=== PATIENT | female | born 1960 | race Caucasian/White ===

== ENCOUNTER → 2017-11-22 | Outpatient (CLI) | payer OTHER ==
[~2017-11-22] MED LIST: BACTRIM DS 8001 TA1 PO; COZAAR100 MG PO; CRESTOR10 MG PO; IBU-8800 MG PO; KEFLEX500 MG PO; METFORMIN1000 MG PO; PERCOCET 325 MG1 TA2 PO; ROBAXIN-750750 MG PO
== END | disposition home or self-care (01) ==
LOC: US 16:56
DX: M79.672 Pain in left foot (principal); R60.0 Localized edema

== ENCOUNTER → 2017-12-13 | Outpatient (CLI) | payer OTHER | END | disposition home or self-care (01) | LOC: US 11:55 | DX: M79.662 Pain in left lower leg (principal); R60.9 Edema, unspecified ==

== ENCOUNTER 2020-12-18 15:09 | Inpatient (IN) | payer OTHER ==
[~2020-12-18] VITALS: Ht 162.5 cm; Wt 128.0 kg
[2020-12-18] VITALS (7 sets, daily range): BP systolic 117–136; BP diastolic 46–88
[2020-12-18 15:49] LABS: HEMATOCRIT 34.5 % (37.0-47.0); LYMPH # 0.8 10*3/uL (1.3-4.4); MEAN CELL VOLUME 99.4 fl (81.0-99.0); MEAN CORPUSCULAR HGB 31.7 pg (27.0-31.0); MEAN CORPUSCULAR HGB CONC 31.9 g/dl (33.0-37.0); MEAN PLATELET VOLUME 9.5 fl (9.6-12.3); MONO # 0.2 10*3/uL (0.1-1.0); MONO % 3.7 % (3.0-9.0); NEUT # 3.2 10*3/uL (2.3-7.9); NEUT % 76.8 % (47.0-73.0); PLATELET COUNT AUTOMATED 252 10*3/uL (130-400); RED BLOOD COUNT 3.47 10*6/uL (4.10-5.10); RED CELL DISTRI WIDTH 13.1 % (0-14.5); WHITE BLOOD COUNT 4.1 10*3/uL (4.8-10.8)
[2020-12-18 15:59] LABS: ACT PARTIAL THROMBO TIME 29.9 SECONDS (20.0-32.1)
[2020-12-18 16:10] LABS: ALBUMIN 2.7 gm/dl (3.1-4.5); ALKALINE PHOSPHATASE 36 U/L (45-117); BUN 24 mg/dl (7-24); CHLORIDE 107 mmol/L (98-107); CPK 49 U/L (26-192); CREATININE 1.47 mg/dL (0.55-1.02); LDH 287 U/L (84-246); POTASSIUM 4.3 mmol/L (3.5-5.1); SGOT/AST 43 IU/L (3-35); SGPT/ALT 25 U/L (12-78); SODIUM 138 mmol/L (136-145); TOTAL PROTEIN 6.8 gm/dL (6.4-8.2)
[2020-12-18 16:14] LABS: TROPONIN I < 0.015 ng/ml (<0.045)
[2020-12-18] MEDS ORDERED: GLIPIZIDE XL10 M1 PO (18:16)
[2020-12-18] MEDS ORDERED: LASIX40 MG PO (18:16)
[2020-12-18] MEDS ORDERED: TRULICITY1.5 MG/0.5 SC (18:16)
[2020-12-18] MEDS ORDERED: ASPIRIN ADULT L81 M1 PO (18:17)
[2020-12-18] MEDS ORDERED: POTASSIUM CHLO10 ME5 PO (18:18)
[2020-12-18] MEDS ORDERED: FENOFIBRATE145 M1 PO (18:18)
[2020-12-18] MEDS ORDERED: SIMVASTATIN40 MG PO (18:19)
[2020-12-18] MEDS ORDERED: TRESIBA FL100 UNIT/1 SQ (18:20)
[2020-12-18] MEDS ORDERED: PRILOSEC20 M1 PO (18:20)
[2020-12-18] MEDS ORDERED: GABAPENTIN600 MG PO (20:01)
[2020-12-19] VITALS: BP 101/54
[2020-12-19 06:08] LABS: EOS % 0.2 % (1.0-4.0); HEMATOCRIT 32.3 % (37.0-47.0); LYMPH # 1.4 10*3/uL (1.3-4.4); LYMPH % 34.5 % (27.0-41.0); MEAN CELL VOLUME 99.4 fl (81.0-99.0); MEAN CORPUSCULAR HGB 31.4 pg (27.0-31.0); MEAN CORPUSCULAR HGB CONC 31.6 g/dl (33.0-37.0); MEAN PLATELET VOLUME 9.4 fl (9.6-12.3); MONO # 0.1 10*3/uL (0.1-1.0); MONO % 3.4 % (3.0-9.0); NEUT # 2.6 10*3/uL (2.3-7.9); NEUT % 61.4 % (47.0-73.0); PLATELET COUNT AUTOMATED 238 10*3/uL (130-400); RED BLOOD COUNT 3.25 10*6/uL (4.10-5.10); RED CELL DISTRI WIDTH 13.2 % (0-14.5); WHITE BLOOD COUNT 4.2 10*3/uL (4.8-10.8)
[2020-12-19 06:31] LABS: ALBUMIN 2.6 gm/dl (3.1-4.5); CREATININE 1.38 mg/dL (0.55-1.02); POTASSIUM 4.3 mmol/L (3.5-5.1)
[2020-12-19 06:33] LABS: TOTAL PROTEIN 6.6 gm/dL (6.4-8.2)
[2020-12-19 07:49] LABS: FERRITIN 357.8 ng/mL (10.0-291.0)
[2020-12-19 08:00] VITALS: BP 128/60
[2020-12-19 12:00] VITALS: BP 109/54
[2020-12-19 16:00] VITALS: BP 141/48
[2020-12-19 20:00] VITALS: BP 131/64
[2020-12-20] VITALS: BP 131/58
[2020-12-20 05:48] LABS: ALBUMIN 2.4 gm/dl (3.1-4.5); CREATININE 1.74 mg/dL (0.55-1.02); POTASSIUM 4.7 mmol/L (3.5-5.1); TOTAL PROTEIN 6.3 gm/dL (6.4-8.2)
[2020-12-20 06:16] LABS: BASO % 0.1 % (0.0-1.0); HEMATOCRIT 30.9 % (37.0-47.0); LYMPH # 1.1 10*3/uL (1.3-4.4); LYMPH % 13.5 % (27.0-41.0); MEAN CELL VOLUME 99.7 fl (81.0-99.0); MEAN CORPUSCULAR HGB 31.3 pg (27.0-31.0); MEAN CORPUSCULAR HGB CONC 31.4 g/dl (33.0-37.0); MEAN PLATELET VOLUME 10.2 fl (9.6-12.3); MONO # 0.2 10*3/uL (0.1-1.0); MONO % 2.7 % (3.0-9.0); NEUT # 6.5 10*3/uL (2.3-7.9); NEUT % 83.3 % (47.0-73.0); PLATELET COUNT AUTOMATED 307 10*3/uL (130-400); RED CELL DISTRI WIDTH 13.2 % (0-14.5); WHITE BLOOD COUNT 7.8 10*3/uL (4.8-10.8)
[2020-12-20 08:00] VITALS: BP 131/86
[2020-12-20 12:00] VITALS: BP 119/48
[2020-12-20 16:00] VITALS: BP 135/61
[2020-12-20 20:00] VITALS: BP 97/73
[2020-12-21] VITALS: BP 110/38
[2020-12-21 04:00] VITALS: BP 133/58
[2020-12-21 05:39] LABS: ALBUMIN 2.1 gm/dl (3.1-4.5); CREATININE 1.96 mg/dL (0.55-1.02); POTASSIUM 4.3 mmol/L (3.5-5.1); TOTAL PROTEIN 6.3 gm/dL (6.4-8.2)
[2020-12-21 06:10] LABS: HEMATOCRIT 30.2 % (37.0-47.0); MEAN CORPUSCULAR HGB 31.5 pg (27.0-31.0); MEAN CORPUSCULAR HGB CONC 31.5 g/dl (33.0-37.0); MEAN PLATELET VOLUME 10.3 fl (9.6-12.3); PLATELET COUNT AUTOMATED 312 10*3/uL (130-400); RED BLOOD COUNT 3.02 10*6/uL (4.10-5.10); RED CELL DISTRI WIDTH 13.3 % (0-14.5); WHITE BLOOD COUNT 10.9 10*3/uL (4.8-10.8)
[2020-12-21 07:44] LABS: ATYPICAL LYMPHS 1 % (0-0); PLATELET SUFFICIENCY NORMAL (NORMAL); TOTAL CELLS COUNTED 100 #CELLS
[2020-12-21 07:45] LABS: POLYCHROMASIA SLIGHT
[2020-12-21 08:00] VITALS: BP 156/80
[2020-12-21 08:41] LABS: ABG BASE EXCESS -5.5 mmol/L (-2.0-2.0); ARTERIAL BLOOD GAS PH 7.348 (7.35-7.45); ARTERIAL BLOOD GAS PO2 74.5 (80-90)
[2020-12-21 12:00] VITALS: BP 138/84
[2020-12-21 16:00] VITALS: BP 111/53
[2020-12-21 18:23] LABS: BILIRUBIN Negative (Negative); BLOOD Negative (Negative); CLARITY Clear (Clear); COLOR Yellow (Yellow); GLUCOSE 3+ (Negative); KETONE Negative (Negative); LEUKO ESTERASE Negative (Negative); NITRITE Negative (Negative); UROBILINOGEN 0.2 E.U./dl (0.0-1.0)
[2020-12-21 18:50] LABS: BACTERIA TRACE; EPITHELIAL CELLS 0-2; RBC 0-2 rbc/hpf (0-2)
[2020-12-21 20:00] VITALS: BP 108/54
[2020-12-22] VITALS: BP 122/65
[2020-12-22 06:19] LABS: HEMATOCRIT 32.3 % (37.0-47.0); MEAN CELL VOLUME 98.5 fl (81.0-99.0); MEAN CORPUSCULAR HGB 31.1 pg (27.0-31.0); MEAN CORPUSCULAR HGB CONC 31.6 g/dl (33.0-37.0); MEAN PLATELET VOLUME 10.1 fl (9.6-12.3); PLATELET COUNT AUTOMATED 371 10*3/uL (130-400); RED BLOOD COUNT 3.28 10*6/uL (4.10-5.10); RED CELL DISTRI WIDTH 13.1 % (0-14.5); WHITE BLOOD COUNT 9.8 10*3/uL (4.8-10.8)
[2020-12-22 06:34] LABS: CREATININE 1.51 mg/dL (0.55-1.02)
[2020-12-22 06:37] LABS: POTASSIUM 5.4 mmol/L (3.5-5.1)
[2020-12-22 07:11] LABS: ATYPICAL LYMPHS 3 % (0-0); BURR CELLS FEW; PLATELET SUFFICIENCY NORMAL (NORMAL); POLYCHROMASIA SLIGHT; TOTAL CELLS COUNTED 100 #CELLS
[2020-12-22 08:00] VITALS: BP 141/60
[2020-12-22 12:00] VITALS: BP 118/49
[2020-12-22 16:00] VITALS: BP 150/77
[2020-12-22 20:00] VITALS: BP 129/61
[2020-12-23] VITALS: BP 139/61
[2020-12-23 06:21] LABS: HEMATOCRIT 33.7 % (37.0-47.0); MEAN CELL VOLUME 97.4 fl (81.0-99.0); MEAN CORPUSCULAR HGB 31.2 pg (27.0-31.0); MEAN PLATELET VOLUME 10.4 fl (9.6-12.3); PLATELET COUNT AUTOMATED 458 10*3/uL (130-400); RED BLOOD COUNT 3.46 10*6/uL (4.10-5.10); RED CELL DISTRI WIDTH 13.2 % (0-14.5); WHITE BLOOD COUNT 13.7 10*3/uL (4.8-10.8)
[2020-12-23 06:37] LABS: CREATININE 1.31 mg/dL (0.55-1.02); POTASSIUM 5.4 mmol/L (3.5-5.1)
[2020-12-23 07:03] LABS: ATYPICAL LYMPHS 1 % (0-0); PLATELET SUFFICIENCY HIGH (NORMAL); POLYCHROMASIA SLIGHT; TOTAL CELLS COUNTED 100 #CELLS
[2020-12-23 08:00] VITALS: BP 138/60
[2020-12-23 09:36] LABS: ABG BASE EXCESS -2.7 mmol/L (-2.0-2.0); ARTERIAL BLOOD GAS PH 7.391 (7.35-7.45); ARTERIAL BLOOD GAS PO2 81.2 (80-90)
[2020-12-23 12:00] VITALS: BP 124/68
[2020-12-23 16:00] VITALS: BP 144/62
[2020-12-23 20:00] VITALS: BP 138/56
[2020-12-24] VITALS: BP 141/77
[2020-12-24 06:08] LABS: HEMATOCRIT 34.8 % (37.0-47.0); MEAN CORPUSCULAR HGB 31.3 pg (27.0-31.0); MEAN CORPUSCULAR HGB CONC 31.3 g/dl (33.0-37.0); MEAN PLATELET VOLUME 10.1 fl (9.6-12.3); PLATELET COUNT AUTOMATED 451 10*3/uL (130-400); RED BLOOD COUNT 3.48 10*6/uL (4.10-5.10); RED CELL DISTRI WIDTH 13.4 % (0-14.5); WHITE BLOOD COUNT 11.6 10*3/uL (4.8-10.8)
[2020-12-24 06:30] LABS: ALBUMIN 2.1 gm/dl (3.1-4.5); CREATININE 1.28 mg/dL (0.55-1.02); POTASSIUM 5.3 mmol/L (3.5-5.1); TOTAL PROTEIN 6.7 gm/dL (6.4-8.2)
[2020-12-24 07:18] LABS: ATYPICAL LYMPHS 1 % (0-0); PLATELET SUFFICIENCY HIGH (NORMAL); TOTAL CELLS COUNTED 100 #CELLS
[2020-12-24 08:00] VITALS: BP 141/57
[2020-12-24 12:00] VITALS: BP 138/70
[2020-12-24 16:00] VITALS: BP 133/52
[2020-12-24 20:00] VITALS: BP 169/55
[2020-12-25] VITALS: BP 114/61
[2020-12-25 04:00] VITALS: BP 114/64
[2020-12-25 06:38] LABS: HEMATOCRIT 35.2 % (37.0-47.0); MEAN CELL VOLUME 100.3 fl (81.0-99.0); MEAN CORPUSCULAR HGB 31.6 pg (27.0-31.0); MEAN CORPUSCULAR HGB CONC 31.5 g/dl (33.0-37.0); MEAN PLATELET VOLUME 10.1 fl (9.6-12.3); PLATELET COUNT AUTOMATED 362 10*3/uL (130-400); RED BLOOD COUNT 3.51 10*6/uL (4.10-5.10); RED CELL DISTRI WIDTH 13.2 % (0-14.5); WHITE BLOOD COUNT 10.5 10*3/uL (4.8-10.8)
[2020-12-25 06:50] LABS: CREATININE 1.21 mg/dL (0.55-1.02); TOTAL PROTEIN 6.9 gm/dL (6.4-8.2)
[2020-12-25 07:23] LABS: POTASSIUM 4.9 mmol/L (3.5-5.1)
[2020-12-25 07:28] LABS: PLATELET SUFFICIENCY NORMAL (NORMAL); TOTAL CELLS COUNTED 100 #CELLS
[2020-12-25 08:00] VITALS: BP 112/90
[2020-12-25 12:00] VITALS: BP 123/61
[2020-12-25 12:21] LABS: ABG BASE EXCESS -0.5 mmol/L (-2.0-2.0); ARTERIAL BLOOD GAS PH 7.407 (7.35-7.45); ARTERIAL BLOOD GAS PO2 57.8 (80-90)
[2020-12-25 16:00] VITALS: BP 140/58
[2020-12-25 20:00] VITALS: BP 147/43
[2020-12-26] VITALS: BP 124/52
[2020-12-26 06:28] LABS: BASO % 0.2 % (0.0-1.0); EOS # 0.1 10*3/uL (0.0-0.4); EOS % 0.4 % (1.0-4.0); HEMATOCRIT 35.2 % (37.0-47.0); LYMPH # 0.9 10*3/uL (1.3-4.4); LYMPH % 7.6 % (27.0-41.0); MEAN CELL VOLUME 97.5 fl (81.0-99.0); MEAN CORPUSCULAR HGB CONC 31.8 g/dl (33.0-37.0); MEAN PLATELET VOLUME 10.2 fl (9.6-12.3); MONO # 0.2 10*3/uL (0.1-1.0); MONO % 1.6 % (3.0-9.0); NEUT # 10.9 10*3/uL (2.3-7.9); NEUT % 89.2 % (47.0-73.0); PLATELET COUNT AUTOMATED 351 10*3/uL (130-400); RED BLOOD COUNT 3.61 10*6/uL (4.10-5.10); RED CELL DISTRI WIDTH 13.2 % (0-14.5); WHITE BLOOD COUNT 12.2 10*3/uL (4.8-10.8)
[2020-12-26 06:41] LABS: ALBUMIN 2.1 gm/dl (3.1-4.5); CREATININE 1.23 mg/dL (0.55-1.02); POTASSIUM 4.5 mmol/L (3.5-5.1); TOTAL PROTEIN 6.9 gm/dL (6.4-8.2)
[2020-12-26 08:00] VITALS: BP 124/65
[2020-12-26 12:00] VITALS: BP 122/44
[2020-12-26 16:00] VITALS: BP 149/57
[2020-12-26 16:26] LABS: ABG BASE EXCESS 1.1 mmol/L (-2.0-2.0); ARTERIAL BLOOD GAS PH 7.463 (7.35-7.45); ARTERIAL BLOOD GAS PO2 69.5 (80-90)
[2020-12-26 19:35] LABS: ABG BASE EXCESS -3.4 mmol/L (-2.0-2.0); ARTERIAL BLOOD GAS PH 7.205 (7.35-7.45)
[2020-12-26 19:37] LABS: ARTERIAL BLOOD GAS PO2 39.9 (80-90)
[2020-12-26 20:00] VITALS: BP 120/57
[2020-12-26 20:09] LABS: ABG BASE EXCESS -3.4 mmol/L (-2.0-2.0); ARTERIAL BLOOD GAS PH 7.249 (7.35-7.45)
[2020-12-26 22:00] VITALS: BP 104/49
[2020-12-26 22:09] LABS: ABG BASE EXCESS -1.7 mmol/L (-2.0-2.0); ARTERIAL BLOOD GAS PH 7.312 (7.35-7.45); ARTERIAL BLOOD GAS PO2 120.2 (80-90)
[2020-12-27] VITALS (13 sets, daily range): BP systolic 86–149; BP diastolic 41–70
[2020-12-27 02:41] LABS: BILIRUBIN Negative (Negative); BLOOD 2+ (Negative); CLARITY Cloudy (Clear); COLOR Yellow (Yellow); GLUCOSE 2+ (Negative); KETONE Negative (Negative); LEUKO ESTERASE Negative (Negative); NITRITE Negative (Negative)
[2020-12-27 03:01] LABS: BACTERIA 1+; RBC 21-30 rbc/hpf (0-2); URIC ACID CRYSTALS 1+
[2020-12-27 06:26] LABS: ALBUMIN 1.9 gm/dl (3.1-4.5); POTASSIUM 5.4 mmol/L (3.5-5.1)
[2020-12-27 06:31] LABS: CREATININE 1.85 mg/dL (0.55-1.02); TOTAL PROTEIN 6.5 gm/dL (6.4-8.2)
[2020-12-27 06:51] LABS: HEMATOCRIT 31.5 % (37.0-47.0); MEAN CELL VOLUME 96.3 fl (81.0-99.0); MEAN CORPUSCULAR HGB 31.2 pg (27.0-31.0); MEAN CORPUSCULAR HGB CONC 32.4 g/dl (33.0-37.0); MEAN PLATELET VOLUME 10.4 fl (9.6-12.3); RED BLOOD COUNT 3.27 10*6/uL (4.10-5.10); RED CELL DISTRI WIDTH 13.2 % (0-14.5); WHITE BLOOD COUNT 13.2 10*3/uL (4.8-10.8)
[2020-12-27 06:56] LABS: PLATELET COUNT AUTOMATED 242 10*3/uL (130-400)
[2020-12-27 07:36] LABS: TOTAL CELLS COUNTED 100 #CELLS
[2020-12-27 07:37] LABS: OVALOCYTES FEW; PLATELET SUFFICIENCY NORMAL (NORMAL); TARGET CELLS FEW
[2020-12-27 08:27] LABS: ABG BASE EXCESS -0.9 mmol/L (-2.0-2.0); ARTERIAL BLOOD GAS PH 7.37 (7.35-7.45); ARTERIAL BLOOD GAS PO2 84.8 (80-90)
[2020-12-27 17:45] LABS: ABG BASE EXCESS -3.1 mmol/L (-2.0-2.0); ARTERIAL BLOOD GAS PH 7.206 (7.35-7.45); ARTERIAL BLOOD GAS PO2 179.9 (80-90)
[2020-12-27 20:37] LABS: ABG BASE EXCESS -3.1 mmol/L (-2.0-2.0); ARTERIAL BLOOD GAS PH 7.203 (7.35-7.45); ARTERIAL BLOOD GAS PO2 117.3 (80-90)
[2020-12-28] VITALS (32 sets, daily range): BP systolic 68–166; BP diastolic 32–72
[2020-12-28 05:42] LABS: ALBUMIN 1.9 gm/dl (3.1-4.5); CREATININE 1.43 mg/dL (0.55-1.02); POTASSIUM 5.3 mmol/L (3.5-5.1); TOTAL PROTEIN 6.7 gm/dL (6.4-8.2)
[2020-12-28 06:53] LABS: HEMATOCRIT 34.3 % (37.0-47.0); MEAN CORPUSCULAR HGB 31.3 pg (27.0-31.0); MEAN CORPUSCULAR HGB CONC 30.6 g/dl (33.0-37.0); MEAN PLATELET VOLUME 10.7 fl (9.6-12.3); PLATELET COUNT AUTOMATED 313 10*3/uL (130-400); RED BLOOD COUNT 3.36 10*6/uL (4.10-5.10); RED CELL DISTRI WIDTH 13.3 % (0-14.5); WHITE BLOOD COUNT 17.3 10*3/uL (4.8-10.8)
[2020-12-28 06:54] LABS: MEAN CELL VOLUME 102.1 fl (81.0-99.0)
[2020-12-28 07:04] LABS: TOTAL CELLS COUNTED 100 #CELLS
[2020-12-28 07:05] LABS: PLATELET SUFFICIENCY NORMAL (NORMAL); ROULEAUX SLIGHT; TOXIC GRANULATION SLIGHT
[2020-12-28 10:00] LABS: ABG BASE EXCESS -3.1 mmol/L (-2.0-2.0); ARTERIAL BLOOD GAS PH 7.306 (7.35-7.45); ARTERIAL BLOOD GAS PO2 102.2 (80-90)
[2020-12-28 13:36] LABS: ARTERIAL BLOOD GAS PH 7.326 (7.35-7.45); ARTERIAL BLOOD GAS PO2 86.9 (80-90)
[2020-12-28 18:02] LABS: ABG BASE EXCESS -3.1 mmol/L (-2.0-2.0); ARTERIAL BLOOD GAS PH 7.217 (7.35-7.45); ARTERIAL BLOOD GAS PO2 80.3 (80-90)
[2020-12-29] VITALS (55 sets, daily range): BP systolic 78–166; BP diastolic 40–63
[2020-12-29 06:09] LABS: HEMATOCRIT 28.7 % (37.0-47.0); MEAN CELL VOLUME 103.2 fl (81.0-99.0); MEAN CORPUSCULAR HGB 31.7 pg (27.0-31.0); MEAN CORPUSCULAR HGB CONC 30.7 g/dl (33.0-37.0); MEAN PLATELET VOLUME 10.9 fl (9.6-12.3); PLATELET COUNT AUTOMATED 260 10*3/uL (130-400); RED BLOOD COUNT 2.78 10*6/uL (4.10-5.10); RED CELL DISTRI WIDTH 13.3 % (0-14.5); WHITE BLOOD COUNT 18.1 10*3/uL (4.8-10.8)
[2020-12-29 06:15] LABS: ALBUMIN 2.3 gm/dl (3.1-4.5); CREATININE 1.88 mg/dL (0.55-1.02); POTASSIUM 5.4 mmol/L (3.5-5.1); TOTAL PROTEIN 6.6 gm/dL (6.4-8.2)
[2020-12-29 07:10] LABS: PLATELET SUFFICIENCY NORMAL (NORMAL); POLYCHROMASIA SLIGHT; TOTAL CELLS COUNTED 100 #CELLS; TOXIC GRANULATION SLIGHT
[2020-12-29 07:11] LABS: ROULEAUX SLIGHT
[2020-12-29 07:41] LABS: ARTERIAL BLOOD GAS PH 7.209 (7.35-7.45)
[2020-12-29 07:42] LABS: ABG BASE EXCESS -6.2 mmol/L (-2.0-2.0)
[2020-12-29 12:45] LABS: ABG BASE EXCESS -3.7 mmol/L (-2.0-2.0); ARTERIAL BLOOD GAS PH 7.301 (7.35-7.45)
[2020-12-29 13:39] LABS: HEMATOCRIT 28.5 % (37.0-47.0); MEAN CELL VOLUME 100.7 fl (81.0-99.0); MEAN CORPUSCULAR HGB 31.4 pg (27.0-31.0); MEAN CORPUSCULAR HGB CONC 31.2 g/dl (33.0-37.0); MEAN PLATELET VOLUME 9.9 fl (9.6-12.3); PLATELET COUNT AUTOMATED 259 10*3/uL (130-400); RED BLOOD COUNT 2.83 10*6/uL (4.10-5.10); RED CELL DISTRI WIDTH 13.4 % (0-14.5); WHITE BLOOD COUNT 18.8 10*3/uL (4.8-10.8)
[2020-12-29 14:06] LABS: PLATELET SUFFICIENCY NORMAL (NORMAL); TOTAL CELLS COUNTED 100 #CELLS
[2020-12-30] VITALS (93 sets, daily range): BP systolic 90–148; BP diastolic 39–64
[2020-12-30 05:31] LABS: ALBUMIN 2.4 gm/dl (3.1-4.5); CREATININE 1.81 mg/dL (0.55-1.02); TOTAL PROTEIN 6.4 gm/dL (6.4-8.2)
[2020-12-30 06:30] LABS: HEMATOCRIT 26.4 % (37.0-47.0); MEAN CELL VOLUME 100.8 fl (81.0-99.0); MEAN CORPUSCULAR HGB 30.9 pg (27.0-31.0); MEAN CORPUSCULAR HGB CONC 30.7 g/dl (33.0-37.0); MEAN PLATELET VOLUME 10.9 fl (9.6-12.3); PLATELET COUNT AUTOMATED 246 10*3/uL (130-400); RED BLOOD COUNT 2.62 10*6/uL (4.10-5.10); RED CELL DISTRI WIDTH 13.6 % (0-14.5); WHITE BLOOD COUNT 17.9 10*3/uL (4.8-10.8)
[2020-12-30 07:33] LABS: TOTAL CELLS COUNTED 100 #CELLS
[2020-12-30 07:34] LABS: OVALOCYTES FEW; PLATELET SUFFICIENCY NORMAL (NORMAL); POLYCHROMASIA SLIGHT; ROULEAUX SLIGHT
[2020-12-30 07:46] LABS: ABG BASE EXCESS -1.9 mmol/L (-2.0-2.0); ARTERIAL BLOOD GAS PH 7.328 (7.35-7.45); ARTERIAL BLOOD GAS PO2 82.3 (80-90)
[2020-12-30 13:29] LABS: ABG BASE EXCESS -2.3 mmol/L (-2.0-2.0); ARTERIAL BLOOD GAS PH 7.343 (7.35-7.45); ARTERIAL BLOOD GAS PO2 122.9 (80-90)
[2020-12-30 17:19] LABS: ABG BASE EXCESS -4.6 mmol/L (-2.0-2.0); ARTERIAL BLOOD GAS PH 7.223 (7.35-7.45); ARTERIAL BLOOD GAS PO2 87.3 (80-90)
[2020-12-31] VITALS (80 sets, daily range): BP systolic 83–137; BP diastolic 36–57
[2020-12-31 06:30] LABS: POTASSIUM 5.4 mmol/L (3.5-5.1)
[2020-12-31 06:48] LABS: ALBUMIN 2.5 gm/dl (3.1-4.5); CREATININE 2.92 mg/dL (0.55-1.02); TOTAL PROTEIN 6.8 gm/dL (6.4-8.2)
[2020-12-31 07:03] LABS: HEMATOCRIT 28.5 % (37.0-47.0); MEAN CORPUSCULAR HGB 30.9 pg (27.0-31.0); MEAN CORPUSCULAR HGB CONC 29.5 g/dl (33.0-37.0); MEAN PLATELET VOLUME 10.9 fl (9.6-12.3); NUCLEATED RED BLOOD CELL 0.2 % (0.0-0.0); PLATELET COUNT AUTOMATED 261 10*3/uL (130-400); RED BLOOD COUNT 2.72 10*6/uL (4.10-5.10); RED CELL DISTRI WIDTH 14.2 % (0-14.5)
[2020-12-31 07:13] LABS: MEAN CELL VOLUME 104.8 fl (81.0-99.0)
[2020-12-31 08:21] LABS: BURR CELLS MODERATE; PLATELET SUFFICIENCY NORMAL (NORMAL); TOTAL CELLS COUNTED 100 #CELLS
[2020-12-31 12:18] LABS: ARTERIAL BLOOD GAS PH 7.235 (7.35-7.45); ARTERIAL BLOOD GAS PO2 79.1 (80-90)
[2020-12-31 12:21] LABS: ABG BASE EXCESS -7.1 mmol/L (-2.0-2.0)
[2020-12-31 17:10] LABS: CREATININE 3.78 mg/dL (0.55-1.02); POTASSIUM 5.8 mmol/L (3.5-5.1)
== END 2020-12-31 21:38 | disposition short-term general hospital (02) | DRG 207 ==
LOC: ED 15:09 → EDHOLD 17:10 → 4E 17:10 → EDHOLD 17:13 → 4E 17:44 → ICCU 12-26 17:07
PROVIDERS: Emergency Medicine; Family Medicine; Internal Medicine; Internal Medicine Critical Care Medicine; Student in an Organized Health Care Education/Training Program; ADMIT Internal Medicine; ATTEND Internal Medicine
PROC: XW033E5 Introduction of Remdesivir Anti-infective into Peripheral Vein, Percutaneous Approach, New Technology Group 5 (ICD-10-PCS; principal; 2020-12-21)
PROC: 5A09357 Assistance with Respiratory Ventilation, Less than 24 Consecutive Hours, Continuous Positive Airway Pressure (ICD-10-PCS; 2020-12-21)
PROC: 5A09357 Assistance with Respiratory Ventilation, Less than 24 Consecutive Hours, Continuous Positive Airway Pressure (ICD-10-PCS; 2020-12-22)
PROC: 5A0935A Assistance with Respiratory Ventilation, Less than 24 Consecutive Hours, High Flow/Velocity Cannula (ICD-10-PCS; 2020-12-22)
PROC: 5A09457 Assistance with Respiratory Ventilation, 24-96 Consecutive Hours, Continuous Positive Airway Pressure (ICD-10-PCS; 2020-12-23)
PROC: 02HV33Z Insertion of Infusion Device into Superior Vena Cava, Percutaneous Approach (ICD-10-PCS; 2020-12-26)
PROC: B548ZZA Ultrasonography of Superior Vena Cava, Guidance (ICD-10-PCS; 2020-12-26)
PROC: 5A1955Z Respiratory Ventilation, Greater than 96 Consecutive Hours (ICD-10-PCS; 2020-12-27)
PROC: 0BH17EZ Insertion of Endotracheal Airway into Trachea, Via Natural or Artificial Opening (ICD-10-PCS; 2020-12-27)
PROC: 02HV33Z Insertion of Infusion Device into Superior Vena Cava, Percutaneous Approach (ICD-10-PCS; 2020-12-28)
DX: U07.1 COVID-19 (principal); J12.82 Pneumonia due to coronavirus disease 2019; J96.90 Respiratory failure, unspecified, unspecified whether with hypoxia or hypercapnia; N17.9 Acute kidney failure, unspecified; E44.0 Moderate protein-calorie malnutrition; R65.10 Systemic inflammatory response syndrome (SIRS) of non-infectious origin without acute organ dysfunction; N39.0 Urinary tract infection, site not specified; Z68.42 Body mass index [BMI] 45.0-49.9, adult; D53.9 Nutritional anemia, unspecified; D72.819 Decreased white blood cell count, unspecified; E11.69 Type 2 diabetes mellitus with other specified complication; E78.5 Hyperlipidemia, unspecified; M54.5 Low back pain; E66.01 Morbid (severe) obesity due to excess calories; I10 Essential (primary) hypertension; E11.65 Type 2 diabetes mellitus with hyperglycemia; D72.810 Lymphocytopenia; E87.5 Hyperkalemia; B95.62 Methicillin resistant Staphylococcus aureus infection as the cause of diseases classified elsewhere; E78.1 Pure hyperglyceridemia; Z88.6 Allergy status to analgesic agent; Z79.899 Other long term (current) drug therapy